=== PATIENT | female | born 1940 | race African-American/Black ===

== ENCOUNTER 2018-10-28 04:39 | Emergency (ER) | payer SELFPAY ==
--- NOTE | 2018-10-28 05:06 | ER Document Report ---
ED Medical Screen (RME) - General Chief Complaint: Altered Mental Status Stated Complaint: POSSIBLE SEIZURE Time Seen by Provider: 10/28/18 04:57 Mode of Arrival: Medic Information source: Patient, Emergency Med Personnel Cannot obtain history due to: Dementia, Altered mental status Notes: 78-year-old female with seizure disorder, atrial fibrillation, hypertension, recent stroke presents via EMS after a possible syncopal episode or seizure. EMS states that patient was unable to give any history and family members were poor informants. Patient is from [place] and receives all her medical care there. EMS reports that the patient is on Tegretol but that the family reported possible noncompliance. Upon arrival patient is alert, awake and alert and oriented x1. She denies any pain. I have greeted and performed a rapid initial assessment of this patient. A comprehensive ED assessment and evaluation of the patient, analysis of test results and completion of medical decision making process we will be contacted by additional ED providers. PHYSICAL EXAMINATION: GENERAL: Well-appearing, well-nourished and in no acute distress. HEAD: Atraumatic, normocephalic. EYES: Pupils equal round extraocular movements intact, conjunctiva are normal. ENT: Nares patent, no tongue laceration NECK: Normal range of motion LUNGS: No respiratory distress Musculoskeletal: Normal range of motion, moves all extremities NEUROLOGICAL: Normal speech, AOx1, confused PSYCH: Normal mood, normal affect. SKIN: Warm, Dry, normal turgor, no rashes or lesions noted. TRAVEL OUTSIDE OF THE [place] IN LAST 30 DAYS: No - HPI Onset: Just prior to arrival Onset/Duration: Sudden Quality of pain: No pain
[2018-10-28] MEDS ORDERED: LORAZEPAM INJ 2 MG/1 ML VIAL IV ONE (05:26)
[2018-10-28] MEDS ORDERED: CARBAMAZEPINE 200 MG TABLET PO ONE (05:26)
[2018-10-28] MEDS ORDERED: CARBAMAZEPINE 200 MG TABLET ONE (05:49)
[2018-10-28 06:34] LABS: VENOUS BLOOD BASE EXCESS 3.2 mmol/L; VENOUS BLOOD HCO3 28.4 mmol/L (20-32); VENOUS BLOOD PCO2 47.2 mmHg (35-63); VENOUS BLOOD PH 7.4 (7.30-7.42)
[2018-10-28 06:41] LABS: ABSOLUTE EOSINOPHILS # (AUTO) 0.1 10^3/uL (0.0-0.6); ABSOLUTE LYMPHOCYTES (AUTO) 1.1 10^3/uL (0.5-4.7); ABSOLUTE MONOCYTES (AUTO) 0.6 10^3/uL (0.1-1.4); ABSOLUTE NEUT (AUTO) 7.7 10^3/uL (1.7-8.2); BASOPHILS % (AUTO) 0.3 % (0-2); EOSINOPHILS % (AUTO) 0.7 % (0-6); HEMATOCRIT 27.8 % (36.0-47.0); LYMPHOCYTES % (AUTO) 11.9 % (13-45); MEAN CORPUSCULAR HEMOGLOBIN 27.1 pg (27.0-33.4); MEAN CORPUSCULAR HGB CONC 32.4 g/dL (32.0-36.0); MEAN CORPUSCULAR VOLUME 84 fl (80-97); PLATELET COUNT 426 10^3/uL (150-450); RED BLOOD COUNT 3.33 10^6/uL (3.72-5.28); RED CELL DISTRIBUTION WIDTH 16.1 % (11.5-14.0); SEGMENTED NEUTROPHILS % (AUTO) 81.1 % (42-78); TOTAL CELLS COUNTED % (AUTO) 100 %; WHITE BLOOD COUNT 9.6 10^3/uL (4.0-10.5)
--- NOTE | 2018-10-28 06:51 | RADIOLOGY REPORT (SQ) ---
EXAM DESCRIPTION: CT HEAD WITHOUT IV CONTRAST COMPLETED DATE/TME: 10/28/2018 05:00 CLINICAL HISTORY: 78 years, Female, ams COMPARISON: None. TECHNIQUE: 301 Images stored on PACS. All CT scanners at this facility use dose modulation, iterative reconstruction, and/or weight based dosing when appropriate to reduce radiation dose to as low as reasonably achievable (ALARA). [facility]: Dose Right [facility]: CareDose [facility]: Dose Right [facility]: Teradose 4D [facility]: TextPayMe LIMITATIONS: None. FINDINGS: The globes are intact bilaterally. Polyps of the right maxillary sinus. No displaced or depressed skull fracture. No intra or extra-axial hemorrhage. CT is limited for evaluation of acute infarct. Diffuse atrophy. Hypodensities in the periventricular and subcortical white matter, consistent with sequelae of small vessel ischemic change. A vague wedge-shaped area of diminished attenuation in the left posterior parieto-occipital region could reflect an area of infarct, of indeterminate age. No mass or midline shift. IMPRESSION: Diffuse atrophy with small vessel ischemic change. Questionable area of age-indeterminate infarct in the left parieto-occipital region. Consider follow-up with dedicated MRI.. TECHNICAL DOCUMENTATION: Quality ID # [id number]: Final reports with documentation of one or more dose reduction techniques (e.g., Automated exposure control, adjustment of the mA and/or kV according to patient size, use of iterative reconstruction technique) copyright 2011 [employer]- All Rights Reserved
[2018-10-28 06:56] LABS: APPEARANCE,URINE CLEAR; BILIRUBIN,URINE NEGATIVE (NEGATIVE); COLOR,URINE YELLOW; GLUCOSE, URINE >=500 mg/dL (NEGATIVE); KETONES,URINE NEGATIVE (NEGATIVE); LEUKOCYTE ESTERASE,URINE NEGATIVE (NEGATIVE); NITRITE,URINE NEGATIVE (NEGATIVE); PROTEIN,URINE NEGATIVE (NEGATIVE); URINE SPECIFIC GRAVITY 1.007; UROBILINOGEN,URINE NEGATIVE mg/dL (<2.0)
--- NOTE | 2018-10-28 07:05 | RADIOLOGY REPORT (SQ) ---
EXAM DESCRIPTION: XR CHEST 2 VIEWS COMPLETED DATE/TME: 10/28/2018 05:00 CLINICAL HISTORY: Cough COMPARISON: None. FINDINGS: Frontal and lateral views of the chest. Elevation of the right hemidiaphragm. Leads overlie the chest. The cardiomediastinal silhouette has normal size and contour. No consolidation, pneumothorax, or pleural effusion. No acute osseous abnormality. Upper abdominal soft tissues are unremarkable. IMPRESSION: 1. No acute pulmonary process identified.
--- NOTE | 2018-10-28 07:42 | ER Document Report ---
ED General - General Chief Complaint: Altered Mental Status Stated Complaint: ALTERED MENTAL STATUS Time Seen by Provider: 10/28/18 04:57 Mode of Arrival: Medic Information source: Patient, Relative, [facility] Records Cannot obtain history due to: Dementia, Mentally challenged TRAVEL OUTSIDE OF THE [place] IN LAST 30 DAYS: No - HPI Patient complains to provider of: Seizure Onset: Other - Here is a 78-year-old female who presents for evaluation of an episode of altered mental status this morning. 2 weeks ago she had an episode of what was described as a hemorrhagic stroke at an outside facility. Thereafter she had subsequently been sent home. Her daughter notes that it looked like she may be had a small episode this morning for 10 minutes where she had a seizure. Currently she denies any complaints. Says that she feels okay. - Related Data Allergies/Adverse Reactions: No Allergy Information Available Allergy (Verified 10/28/18 06:27) Past Medical History - General Information source: Patient, Emergency Med Personnel - Social History Smoking Status: Former Smoker Review of Systems - Review of Systems -: Yes All other systems reviewed and negative Physical Exam - Vital signs Vitals: Resp BP Pulse Ox 14 171/92 H 98 10/28/18 04:47 10/28/18 04:47 10/28/18 04:47 Interpretation: Hypertensive - General General appearance: Appears well In distress: None - HEENT Head: Normocephalic Eyes: Normal Conjunctiva: Normal Cornea: Normal Extraocular movements intact: Yes Eyelashes: Normal Pupils: PERRL - Respiratory Respiratory status: No respiratory distress Chest status: Nontender Breath sounds: Normal Chest palpation: Normal - Cardiovascular Rhythm: Regular Heart sounds: Normal auscultation Murmur: No - Abdominal Inspection: Normal Distension: No distension Tenderness: Nontender - Back Back: Normal - Extremities General upper extremity: Normal inspection, Nontender, Normal color, Normal ROM , Normal temperature General lower extremity: Normal inspection, Nontender, Normal color, Normal ROM , Normal temperature, Normal weight bearing. No: Kai's sign - Neurological Neuro grossly intact: Yes Cognition: Confused, Inattentive Orientation: Disoriented to place, Disoriented to time [place] Coma Scale Eye Opening: Spontaneous [place] Coma Scale Verbal: Confused [place] Coma Scale Motor: Obeys Commands [place] Coma Scale Total: 14 Speech: Normal Cranial nerves: Normal Motor strength normal: LUE, RUE, LLE, RLE Sensory: Normal - Skin Skin Temperature: Warm Skin Moisture: Dry Skin Color: Normal Course - Re-evaluation Re-evalutation: 70-year-old female who had a CVA 2 weeks prior for which she was evaluated at an outside facility and underwent admission with adjustments of her medications including an increase in her Lipitor dose as well as her blood pressure medications. She thereafter has remained noncompliant according to family and continued to skip medication dosing. She had an episode this morning where it sounds like she may have had a brief seizure. Because of this concern her daughter brought her to the emergency department via EMS. Here she has been pleasant, she did receive Ativan prior to my evaluation and underwent a head CT. Her head CT shows what appears to be an infarct consistent with 1 which is several days old. She denies any seizure-like activity since presenting to the emergency room. - Vital Signs Vital signs: Temp Pulse Resp BP Pulse Ox 20 116/81 100 10/28/18 10:01 10/28/18 10:01 10/28/18 10:01 - Laboratory Result Diagrams: 10/28/18 06:21 10/28/18 07:19 Laboratory results interpreted by me: 10/28/18 10/28/18 10/28/18 05:47 06:21 07:19 RBC 3.33 L Hgb 9.0 L Hct 27.8 L RDW 16.1 H Seg Neutrophils % 81.1 H Lymphocytes % 11.9 L Glucose 260 H Total Bilirubin < 0.1 L Total Protein 6.2 L Albumin 3.1 L Urine Glucose (UA) >=500 H Salicylates < 1.0 L Acetaminophen < 10 L Discharge - Discharge Clinical Impression: Seizure, Confusion Condition: Good Disposition: HOME, SELF-CARE Additional Instructions: You were seen today in the emergency department after he had a seizure. You had also had a stroke 2 weeks ago. Today you underwent a CAT scan of your head. You had blood work. Your Tegretol level was normal today. Your head scan showed your old stroke. Your daughter was consulted in your care as she helps make their decisions. It is very important that you do not miss any doses of your aspirin, it is very important that you do not miss any doses of your Lipitor. You should follow-up with a neurologist in the next week for continuing management of your seizures and stroke. You were offered admission of the hospital and you declined. Return in case of any worsening fevers, chills, lightheadedness or other symptoms.
[2018-10-28 07:55] LABS: ALANINE AMINOTRANSFERASE 12 U/L (9-52); ALBUMIN 3.1 g/dL (3.5-5.0); ALKALINE PHOSPHATASE 98 U/L (38-126); ANION GAP 10 (5-19); ASPARTATE AMINO TRANSFERASE 16 U/L (14-36); BILIRUBIN,DIRECT 0.1 mg/dL (0.0-0.4); BLOOD UREA NITROGEN 13 mg/dL (7-20); CALCIUM 8.8 mg/dL (8.4-10.2); CARBON DIOXIDE 27 mmol/L (22-30); CHLORIDE 102 mmol/L (98-107); GLUCOSE 260 mg/dL (75-110); POTASSIUM 3.7 mmol/L (3.6-5.0); SODIUM 139.4 mmol/L (137-145); TOTAL PROTEIN 6.2 g/dL (6.3-8.2)
[2018-10-28 07:56] LABS: BILIRUBIN,TOTAL < 0.1 mg/dL (0.2-1.3)
[2018-10-28 07:57] LABS: ACETAMINOPHEN < 10 ug/mL (10-30); ALCOHOL < 10 mg/dL (NONE DETECTED); SALICYLATE < 1.0 mg/dL (2.0-20.0)
[2018-10-28 10:17] VITALS: BP 116/81
--- NOTE | 2018-10-28 20:53 | EKG REPORT ---
SEVERITY:- ABNORMAL ECG - SINUS RHYTHM MOBITZ I AV BLOCK FIRST DEGREE AV BLOCK PROBABLE LEFT ATRIAL ABNORMALITY RBBB AND LAFB LEFT VENTRICULAR HYPERTROPHY LATERAL INFARCT, OLD : Confirmed by: Alta Juarez MD 28-Oct-2018 20:52:44
== END 2018-10-28 16:52 | disposition home or self-care (01) ==
LOC: ER 04:39
DX: R56.9 Unspecified convulsions (principal); R41.0 Disorientation, unspecified; Z86.73 Personal history of transient ischemic attack (TIA), and cerebral infarction without residual deficits
CPT/HCPCS: 93005; 99285; 96374; 36415; 80307 ×3; 80156; 85025; 80053; 81001; 84484; 82803; 71046; 70450; 93010; J2060